=== PATIENT | male | born 1945 | race Caucasian/White ===

== ENCOUNTER → 2024-06-22 | Outpatient (CLI) | payer OTHER, SELFPAY ==
--- NOTE | 2024-06-22 | XR_ITS ---
Examination: Foot, right, 3 views Technique: AP, oblique, lateral views foot, 3 views Date and time of exam: June 22, 2024 1224 hours INDICATIONS: Heel pain beginning 3 months ago getting worse. FINDINGS: Significant osteopenia 3 mm plantar bony calcaneal spur No fracture IMPRESSION: 3 mm plantar bony calcaneal spur
== END | disposition home or self-care (01) ==
LOC: CDIM 11:02
PROVIDERS: PCP Family Medicine; Referring Provider Family Medicine; Visit Provider Family Medicine
DX: M77.31 Calcaneal spur, right foot (principal)
CPT/HCPCS: 73630